=== PATIENT | male | born 1975 | race Two or more races ===

== ENCOUNTER 2024-06-03 06:59 | Day surgery (SDC) | payer BC ==
[~2024-06-03 06:59] MED LIST: Sodium Chloride 0.9% 10 ML Syringe FLUSH PRN; Sodium Chloride 0.9% 2.5 ML Syringe FLUSH PRN; Sodium Chloride 0.9% 20 ML SDV IV PRN
[2024-06-03] MEDS: Lactated Ringers 1,000 ML IV SCH (07:40)
[2024-06-03] MEDS ORDERED: propofoL 500 MG/50 ML 50 ML ONE (08:23)
== END 2024-06-03 09:30 | disposition home or self-care (01) ==
LOC: MW.SDS 06:59
PROVIDERS: ATTEND Surgery
DX: Z12.11 Encounter for screening for malignant neoplasm of colon (principal); D12.3 Benign neoplasm of transverse colon; D12.8 Benign neoplasm of rectum; E11.9 Type 2 diabetes mellitus without complications; I10 Essential (primary) hypertension; Z79.4 Long term (current) use of insulin; Z79.84 Long term (current) use of oral hypoglycemic drugs; Z79.899 Other long term (current) drug therapy; Z87.891 Personal history of nicotine dependence
CPT/HCPCS: 45380; 82947; J2704; J7120; 00811